=== PATIENT | female | born 1970 | race Caucasian/White ===

== ENCOUNTER → 2018-01-18 | Outpatient (CLI) | payer OTHER | LOC: BRMIMAGING 09:59 | PROVIDERS: ATTEND Internal Medicine Rheumatology | DX: M25.552 Pain in left hip (principal) | CPT/HCPCS: 73521-PO ==

== ENCOUNTER → 2018-02-28 | Outpatient (CLI) | payer OTHER | LOC: FIMAGING 09:07 | PROVIDERS: ATTEND Family Medicine Sports Medicine | DX: Z12.31 Encounter for screening mammogram for malignant neoplasm of breast (principal); Z80.3 Family history of malignant neoplasm of breast ==

== ENCOUNTER → 2019-04-29 | Outpatient (CLI) | payer OTHER | LOC: FIMAGING 08:02 ==